=== PATIENT | female | born 1965 | race Caucasian/White ===

== ENCOUNTER 2021-06-01 16:26 | Emergency (ER) | payer BC, SELFPAY ==
[2021-06-01 16:19] VITALS: BP 110/76; PULSE 65; RESP 17; TEMP 36.7; O2SAT 98
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
[2021-06-01] MEDS: Cyclobenzaprine 10 MG TAB PO (18:35)
[2021-06-01] MEDS: Lidocaine/Epinephri/Tetracaine Topical Gel 3 ML TP (18:35)
[2021-06-01] MEDS: Ibuprofen 400 MG TAB PO (18:35)
== END 2021-06-01 20:14 | disposition home or self-care (01) ==
PROVIDERS: Emergency Provider Registered Nurse Emergency
DX: S01.112A Laceration without foreign body of left eyelid and periocular area, initial encounter (principal); S50.311A Abrasion of right elbow, initial encounter; S70.211A Abrasion, right hip, initial encounter; S90.511A Abrasion, right ankle, initial encounter; V18.0XXA Pedal cycle driver injured in noncollision transport accident in nontraffic accident, initial encounter; Y93.55 Activity, bike riding
CPT/HCPCS: 12011; 99281; 70450; 72125